=== PATIENT | male | born 1990 | race American Indian/Alaskan Native ===

== ENCOUNTER 2021-08-21 23:36 | Emergency (ER) | payer SELFPAY ==
[2021-08-22 00:26] VITALS: BP 117/87
[2021-08-22] MEDS ORDERED: HYDROcodone/ACETAMINOPHEN 5-325 MG TAB PO STA (03:16)
--- NOTE | 2021-08-22 03:31 | Emergency Department Report ---
- General Chief complaint: Skin Rash Stated complaint: BURNING SHINGLES Time Seen by Provider: 08/22/21 01:43 Source: patient Mode of arrival: Ambulatory Limitations: No Limitations - History of Present Illness Initial comments: 31-year-old F [place] male no significant past medical history presents emerged department complaining of a couple day history of a painful rash to the left flank/back region which is a strong suspicion for shingles. States he had a visit today with a virtual doctor who advised him the need to come to emergency department to be treated for shingles. He reports no significant past medical history pain is dull and throbbing worse with palpation and range of motion the area was rash was preceded by numbness and tingling. Ports no hemoptysis no he matemesis hematochezia, no fever, chills, sweats Quality: dull Consistency: constant Improves with: none Worsens with: none Context: none Treatments Prior to Arrival: none - Related Data Previous Rx's Medication Instructions Recorded Last Taken Type Acyclovir [Zovirax Tab] 800 mg PO 5XD #35 tablet 08/22/21 Unknown Rx Allergies Allergy/AdvReac Type Severity Reaction Status Date / Time No Known Allergies Allergy Verified 08/22/21 00:26 Abscess Boil HPI - HPI Chief Complaint: Skin Rash Stated Complaint: BURNING SHINGLES Time Seen by Provider: 08/22/21 01:43 Home Medications: Previous Rx's Medication Instructions Recorded Last Taken Type Acyclovir [Zovirax Tab] 800 mg PO 5XD #35 tablet 08/22/21 Unknown Rx Allergies/Adverse Reactions: Allergies Allergy/AdvReac Type Severity Reaction Status Date / Time No Known Allergies Allergy Verified 08/22/21 00:26 ED Review of Systems ROS: Stated complaint: BURNING SHINGLES Other details as noted in HPI Comment: All other systems reviewed and negative ED Past Medical Hx - Past Medical History Hx HIV: Yes - Surgical History Past Surgical History?: No - Medications Home Medications: Home Medications Medication Instructions Recorded Confirmed Last Taken Type Acyclovir [Zovirax Tab] 800 mg PO 5XD #35 tablet 08/22/21 Unknown Rx ED Physical Exam - General Limitations: No Limitations General appearance: alert, in no apparent distress - Head Head exam: Present: atraumatic, normocephalic - Eye Eye exam: Present: normal appearance, PERRL, EOMI, scleral icterus - ENT ENT exam: Present: mucous membranes moist - Neck Neck exam: Present: normal inspection - Respiratory Respiratory exam: Present: normal lung sounds bilaterally. Absent: respiratory distress - Cardiovascular Cardiovascular Exam: Present: regular rate, normal rhythm. Absent: systolic murmur, diastolic murmur, rubs, gallop - GI/Abdominal GI/Abdominal exam: Present: soft, normal bowel sounds - Rectal Rectal exam: Present: deferred - Extremities Exam Extremities exam: Present: normal inspection - Back Exam Back exam: Present: normal inspection - Neurological Exam Neurological exam: Present: alert, oriented X3 - Psychiatric Psychiatric exam: Present: normal affect, normal mood - Skin Skin exam: Present: warm, dry, intact, normal color. Absent: rash - Expanded Skin Exam Expanded 1 - Coalescence of acicular rash to this region tenderness with palpation. Some local redness is appreciated. No reevaluation. No broken skin no drainage. ED Course Vital Signs 08/22/21 00:22 Temperature 98.6 F Pulse Rate 89 Respiratory 18 Rate Blood Pressure 117/87 [Left] O2 Sat by Pulse 96 Oximetry Critical care attestation.: If time is entered above; I have spent that time in minutes in the direct care of this critically ill patient, excluding procedure time. ED Disposition Clinical Impression: Herpes zoster Disposition: HOME / SELF CARE / HOMELESS Is pt being admited?: No Does the pt Need Aspirin: No Condition: Stable Instructions: Viral Illness, Adult, Shingles, Neuropathic Pain Prescriptions: Acyclovir [Zovirax Tab] 800 mg PO 5XD #35 tablet Referrals: [facility] [Provider Group] - 3-5 Days
== END 2021-08-22 05:10 | disposition home or self-care (01) ==
LOC: ED 23:36
DX: B02.9 Zoster without complications (principal)
CPT/HCPCS: 99282

== ENCOUNTER 2021-10-10 11:56 | Emergency (ER) | payer SELFPAY ==
--- NOTE | 2021-10-10 12:52 | Emergency Department Report ---
Minor Respiratory - HPI Chief Complaint: Dyspnea/Respdistress Stated Complaint: DIFFICULTY BREATHING Time Seen by Provider: 10/10/21 12:51 Duration: 3 Days Pain Location: Facial Severity: mild Minor Respiratory: Yes Able to Tolerate Fluids, No Rhinorrhea, No Sore Throat, No Ear Pain, No Cough, No Sick Contacts, No Hemoptysis, No Chest Pain, No Shortness of Breath, No Fever Other History: 31 YO COMES TO ER WITH FB SENSATION IN THROAT. HE ADDS "IF YOU FIND SOMETHING WRONG JUST FIX IT DONT TELL ME.". NO CP. NO SOB. NO FEVER. NO CHILLS. ON HOME ANTIVIRALS. ABC INTACT. NO DROOLING. CONTROLLING SECRETIONS. NONILL APPEARING ED Review of Systems ROS: Stated complaint: DIFFICULTY BREATHING Other details as noted in HPI Comment: All other systems reviewed and negative ED Past Medical Hx - Past Medical History Previous Medical History?: Yes Hx HIV: Yes - Surgical History Past Surgical History?: No - Family History Family history: no significant - Social History Smoking Status: Never Smoker Substance Use Type: None - Medications Home Medications: Home Medications Medication Instructions Recorded Confirmed Last Taken Type Acyclovir [Zovirax Tab] 800 mg PO 5XD #35 tablet 08/22/21 Unknown Rx Minor Respiratory Exam - Exam General: Vital signs noted. No distress. Alert and acting appropriately. HEENT: Yes Moist Mucous Membranes, No Pharyngeal Erythema, No Pharyngeal Exudates, No Rhinorrhea, No Conjuctival Injection, No Frontal Tenderness, No Maxillary Tenderness Ear: Neither TM Bulge, Neither TM Erythema, Neither EAC Pain, Neither EAC Discharge Neck: Yes Supple, No Adenopathy Lungs: Yes Good Air Exchange, No Wheezes, No Ronchi, No Stridor, No Cough, No Labored Respirations, No Retractions, No Use of Accessory Muscles, No Other Abnormal Lung Sounds Heart: Yes Regular, No Murmur Abdomen: Yes Normal Bowel Sounds, No Tenderness, No Peritoneal Signs Skin: No Rash, No Edema Neurologic: Alert and oriented, no deficits. Musculoskeletal: Unremarkable. ED Course Vital Signs 10/10/21 12:43 Temperature 98.5 F Pulse Rate 98 H Respiratory 16 Rate Blood Pressure 113/78 [Left] O2 Sat by Pulse 98 Oximetry ED Medical Decision Making - Radiology Data Radiology results: report reviewed, image reviewed [facility] - Medical Decision Making Vital Signs 10/10/21 12:43 Temperature 98.5 F Pulse Rate 98 H Respiratory 16 Rate Blood Pressure 113/78 [Left] O2 Sat by Pulse 98 Oximetry XRAY NORMAL PT REASSURED EXAM WNL TAKING PO DC HOME WITH DC PLAN OF CARE INCLUDING DIET, ACTIVITY, MEDS, AND FOLLOW UP. PT VERBALIZES UNDERSTANDING. - Differential Diagnosis RO FB Critical care attestation.: If time is entered above; I have spent that time in minutes in the direct care of this critically ill patient, excluding procedure time. ED Disposition Clinical Impression: Foreign body sensation in throat Disposition: 01 HOME / SELF CARE / HOMELESS Is pt being admited?: No Does the pt Need Aspirin: No Condition: Stable Additional Instructions: FOLLOW UP WITH PCP REFERRAL BELOW Referrals: MICHAEL MACDONALD MD [Staff Physician] - 3-5 Days Time of Disposition: 14:19
--- NOTE | 2021-10-10 14:03 | XRay Report ---
. XR chest 1V ap INDICATION / CLINICAL INFORMATION: sob. COMPARISON: None available. FINDINGS: SUPPORT DEVICES: None. HEART /PULMONARY VASCULATURE: No significant abnormality. LUNGS / PLEURA: No significant pulmonary or pleural abnormality. No pneumothorax. IMPRESSION: 1. No acute findings. Signer Name: Pantera Curiel MD Signed: 10/10/2021 1:58 PM Workstation Name: [id number]
--- NOTE | 2021-10-10 14:09 | XRay Report ---
NECK SOFT TISSUE 2 VIEW(S) INDICATION / CLINICAL INFORMATION: sob COMPARISON: None available. FINDINGS: EPIGLOTTIS: No significant abnormality. RETROPHARYNGEAL SOFT TISSUES: No significant abnormality. AIRWAY: No significant abnormality. RADIOPAQUE FOREIGN BODY: None. SKELETAL SYSTEM: No significant abnormality. ADDITIONAL FINDINGS: None. IMPRESSION: 1. No significant abnormality. Signer Name: Pantera Curiel MD Signed: 10/10/2021 2:04 PM Workstation Name: [id number]
[2021-10-10 22:23] VITALS: BP 122/77
== END 2021-10-10 22:22 | disposition home or self-care (01) ==
LOC: ED 11:56
DX: R09.89 Other specified symptoms and signs involving the circulatory and respiratory systems (principal)
CPT/HCPCS: 70360; 71045; 99283